=== PATIENT | female | born 2000 | race Caucasian/White ===

== ENCOUNTER 2020-03-31 01:27 | Emergency (ER) | payer BC ==
[2020-03-31] MEDS ORDERED: Sodium Chloride 0.9% 2.5 ML Syringe FLUSH PRN (01:37)
[2020-03-31] MEDS ORDERED: Sodium Chloride 0.9% 10 ML Syringe FLUSH PRN (01:37)
--- NOTE | 2020-03-31 01:39 | EDM.PDOC ---
ED HPI GENERAL MEDICAL PROBLEM - General Stated Complaint: STROKE SYMPTOMS Time Seen by Provider: 03/31/20 01:40 - History of Present Illness INITIAL COMMENTS - FREE TEXT/NARRATIVE: History of present illness: [] This patient who stopped taking her Clomid 3 weeks ago has otherwise had no recent change in her medication status she takes metformin for polycystic ovaries. The patient felt dizzy when she woke up in the morning of 03/30/2020 and felt a little off and somewhat dizzy all day. When she laid down in the afternoon she felt more dizzy. She also felt a lot more dizzy when she tried to lay down to go to bed a couple of hours ago. The dizziness is associated with true rotational vertigo. Move her head because that makes it worse. Lying down also makes it worse. It is associated with nausea and diaphoresis. There is no dyspnea. The patient is a non-smoker who is not diabetic and does not get treated for blood pressure or cholesterol. She is to take thyroid replacement for Loly's thyroiditis but she does not take it because she is not good about taking medicines according to her. The patient does feel like there is some numbness in the right side of her face. Her said she had slurred speech. Additional history from the spouse is that when she laid down tonight and felt extremely dizzy she was quite anxious and worried. She was she was calling out and telling him that something is wrong. She seemed to have breaks during her sentence completion. There were gaps but the words were the correct words that she intended. Review of systems: As per history of present illness and below otherwise all systems reviewed and negative. Past medical history: As per history of present illness and as reviewed below otherwise noncontributory. Surgical history: As per history of present illness and as reviewed below otherwise noncontributory. Social history: No reported history of drug or alcohol abuse. Family history: As per history of present illness and as reviewed below otherwise noncontributory. Physical exam: Constitutional - well developed, well-nourished and in no acute distress HEENT - normocephalic, no evidence of trauma - external nose and mouth normal - no mass in neck and no JVD - mucosae moist EYES - full EOM, PERRL, no icterus - no evidence of inflammation, injection, or drainage Respiratory - no respiratory distress, equal bilateral expansion, lungs clear to auscultation and no abnormal lung sounds Cardiovascular - Regular Rhythm with S1 and S2 appreciated and no murmur, gallop or rub. GI - abdomen soft without distension or organomegaly - normal bowel sounds - no guard or rebound Musculoskeletal no gross deformity of long bones or joints - no tenderness, swelling or edema Neurologic -FAST exam is negative. Alert and oriented times four - CN II-XII grossly intact - motor sensory and coordination symmetrically normal. Patient has dizziness when her head is moved from side to side and there is some slow horizontal nystagmus. Psychiatric - appropriate mood and affect with normal thought content Hematologic - No petechiae or purpura - mucosa appropriate color and sclera not pale - normal nail bed color and refill Integument - no rash or evidence of trauma - normal turgor Diagnostics: [] Therapeutics: [] Impression: [] Plan: [] Definitive disposition and diagnosis as appropriate pending reevaluation and review of above. - Related Data Allergies Allergy/AdvReac Type Severity Reaction Status Date / Time sumatriptan [From Imitrex] Allergy Other Verified 03/31/20 01:38 Home Meds: Home Meds ClomiPHENE [ClomiPHENE Citrate] 1 tab PO ASDIRECTED 03/31/20 [History] Meclizine HCl 25 mg PO TID PRN #20 tablet 03/31/20 [Rx] metFORMIN [Glucophage XR] 500 mg PO BID 03/31/20 [History] ED ROS GENERAL - Review of Systems Review Of Systems: Comprehensive ROS is negative, except as noted in HPI. ED EXAM, GENERAL - Physical Exam Exam: See Below Free Text/Narrative:: My physical exam is under the HPI EKG INTERPRETATION EKG Date: 03/31/20 Rhythm: NSR Rate (Beats/Min): 95 [place]: Other (Borderline right axis deviation) P-Wave: Present QRS: Normal ST-T: Normal Comparison: NA - No Prior EKG EKG Interpretation Comments: EKG does not demonstrate any acute ischemia or injury Course - Vital Signs Text/Narrative:: Station and gait were normal and after the meclizine and rest in the department she felt better. Visual tello by confrontation were normal. Full extraocular motion was normal with no diplopia. The patient read small print at 14 inches with her right eye where she said she did have kind of a feeling that her face was not completely normal and sensation. This raises the possibility that she may be developing a Gonzalez's palsy but if so she does not have any appearance of that at this point. The patient agreed to take an aspirin daily until she could see neurology. She will be prescribed meclizine for symptoms. Last Recorded V/S: Last Vital Signs Temp 96.9 F 03/31/20 01:34 Pulse 84 03/31/20 02:29 Resp 14 03/31/20 02:29 BP 157/88 H 03/31/20 02:29 Pulse Ox 97 03/31/20 02:29 - Orders/Labs/Meds Orders: Active Orders 24 hr Category Date Time Status Cardiac Monitoring [RC] . DIRECTED Care 03/31/20 01:37 Active EKG Documentation Completion [] AM Care 03/31/20 01:37 Active Sodium Chloride 0.9% [Saline Flush] Med 03/31/20 01:37 Active 10 ml FLUSH ASDIRECTED PRN Sodium Chloride 0.9% [Saline Flush] Med 03/31/20 01:37 Active 2.5 ml FLUSH ASDIRECTED PRN Saline Lock Insert [OM.PC] Stat Oth 03/31/20 01:37 Ordered Medication Orders Sodium Chloride (Saline Flush) 10 ml FLUSH ASDIRECTED PRN PRN Reason: Keep Vein Open Sodium Chloride (Saline Flush) 2.5 ml FLUSH ASDIRECTED PRN PRN Reason: Keep Vein Open Labs: Laboratory Tests 03/31/20 03/31/20 03/31/20 Range/Units 01:42 01:42 01:42 WBC 15.80 H (4.0-11.0) K/uL RBC 4.95 (4.30-5.90) M/uL Hgb 13.0 (12.0-16.0) g/dL Hct 41.0 (36.0-46.0) % MCV 82.8 (80.0-98.0) fL MCH 26.3 L (27.0-32.0) pg MCHC 31.7 (31.0-37.0) g/dL RDW Std Deviation 42.6 (28.0-62.0) fl RDW Coeff of Jef 14 (11.0-15.0) % Plt Count 448 H (150-400) K/uL MPV 8.90 (7.40-12.00) fL Neut % (Auto) 55.8 (48.0-80.0) % Lymph % (Auto) 35.3 (16.0-40.0) % [place] % (Auto) 6.5 (0.0-15.0) % Eos % (Auto) 2.2 (0.0-7.0) % Baso % (Auto) 0.2 (0.0-1.5) % Neut # (Auto) 8.8 H (1.4-5.7) K/uL Lymph # (Auto) 5.6 H (0.6-2.4) K/uL [place] # (Auto) 1.0 H (0.0-0.8) K/uL Eos # (Auto) 0.4 (0.0-0.7) K/uL Baso # (Auto) 0.0 (0.0-0.1) K/uL Nucleated RBC % 0.0 /100WBC Nucleated RBCs # 0 K/uL Sodium 138 (136-145) mmol/L Potassium 3.4 L (3.5-5.1) mmol/L Chloride 102 (98-107) mmol/L Carbon Dioxide 24.8 (21.0-32.0) mmol/L BUN 11 (7.0-18.0) mg/dL Creatinine 0.8 (0.6-1.0) mg/dL Est Cr Clr Drug Dosing TNP Estimated GFR (MDRD) > 60.0 ml/min Glucose 92 (74-106) mg/dL POC Glucose (60-110) mg/dL Calcium 8.7 (8.5-10.1) mg/dL Total Bilirubin 0.3 (0.2-1.0) mg/dL AST 18 (15-37) IU/L ALT 25 (14-63) IU/L Alkaline Phosphatase 94 (46-116) U/L Troponin I < 0.050 (0.000-0.056) ng/mL Total Protein 8.9 H (6.4-8.2) g/dL Albumin 4.1 (3.4-5.0) g/dL Globulin 4.8 H (2.6-4.0) g/dL Albumin/Globulin Ratio 0.9 (0.9-1.6) Free T4 (0.76-1.46) ng/dL TSH 3rd Generation 10.57 H (0.36-3.74) uIU/mL HCG, Qual NEGATIVE (NEG) Urine Color Urine Appearance Urine pH (5.0-8.0) Ur Specific Max (1.001-1.035) Urine Protein (NEGATIVE) mg/dL Urine Glucose (UA) (NEGATIVE) mg/dL Urine Ketones (NEGATIVE) mg/dL Urine Occult Blood (NEGATIVE) Urine Nitrite (NEGATIVE) Urine Bilirubin (NEGATIVE) Urine Urobilinogen (<2.0) EU/dL Ur Leukocyte Esterase (NEGATIVE) Urine RBC (0-2/HPF) Urine WBC (0-5/HPF) Ur Epithelial Cells (NONE-FEW) Urine Bacteria (NEGATIVE) Urine Mucus (NONE-MOD) 03/31/20 03/31/20 03/31/20 Range/Units 01:42 01:42 02:14 WBC (4.0-11.0) K/uL RBC (4.30-5.90) M/uL Hgb (12.0-16.0) g/dL Hct (36.0-46.0) % MCV (80.0-98.0) fL MCH (27.0-32.0) pg MCHC (31.0-37.0) g/dL RDW Std Deviation (28.0-62.0) fl RDW Coeff of Jef (11.0-15.0) % Plt Count (150-400) K/uL MPV (7.40-12.00) fL Neut % (Auto) (48.0-80.0) % Lymph % (Auto) (16.0-40.0) % [place] % (Auto) (0.0-15.0) % Eos % (Auto) (0.0-7.0) % Baso % (Auto) (0.0-1.5) % Neut # (Auto) (1.4-5.7) K/uL Lymph # (Auto) (0.6-2.4) K/uL [place] # (Auto) (0.0-0.8) K/uL Eos # (Auto) (0.0-0.7) K/uL Baso # (Auto) (0.0-0.1) K/uL Nucleated RBC % /100WBC Nucleated RBCs # K/uL Sodium (136-145) mmol/L Potassium (3.5-5.1) mmol/L Chloride (98-107) mmol/L Carbon Dioxide (21.0-32.0) mmol/L BUN (7.0-18.0) mg/dL Creatinine (0.6-1.0) mg/dL Est Cr Clr Drug Dosing Estimated GFR (MDRD) ml/min Glucose (74-106) mg/dL POC Glucose 91 (60-110) mg/dL Calcium (8.5-10.1) mg/dL Total Bilirubin (0.2-1.0) mg/dL AST (15-37) IU/L ALT (14-63) IU/L Alkaline Phosphatase (46-116) U/L Troponin I (0.000-0.056) ng/mL Total Protein (6.4-8.2) g/dL Albumin (3.4-5.0) g/dL Globulin (2.6-4.0) g/dL Albumin/Globulin Ratio (0.9-1.6) Free T4 0.99 (0.76-1.46) ng/dL TSH 3rd Generation (0.36-3.74) uIU/mL HCG, Qual (NEG) Urine Color YELLOW Urine Appearance HAZY Urine pH 6.0 (5.0-8.0) Ur Specific Max 1.010 (1.001-1.035) Urine Protein NEGATIVE (NEGATIVE) mg/dL Urine Glucose (UA) NEGATIVE (NEGATIVE) mg/dL Urine Ketones NEGATIVE (NEGATIVE) mg/dL Urine Occult Blood SMALL H (NEGATIVE) Urine Nitrite NEGATIVE (NEGATIVE) Urine Bilirubin NEGATIVE (NEGATIVE) Urine Urobilinogen 0.2 (<2.0) EU/dL Ur Leukocyte Esterase NEGATIVE (NEGATIVE) Urine RBC 0-2 (0-2/HPF) Urine WBC 0-2 (0-5/HPF) Ur Epithelial Cells FEW (NONE-FEW) Urine Bacteria FEW (NEGATIVE) Urine Mucus LIGHT (NONE-MOD) Meds: Medications Generic Name Dose Route Start Last Admin Trade Name Freq PRN Reason Stop Dose Admin Sodium Chloride 10 ml 03/31/20 01:37 Saline Flush FLUSH ASDIRECTED PRN Keep Vein Open Sodium Chloride 2.5 ml 03/31/20 01:37 Saline Flush FLUSH ASDIRECTED PRN Keep Vein Open Discontinued Medications Generic Name Dose Route Start Last Admin Trade Name Freq PRN Reason Stop Dose Admin Meclizine HCl 25 mg 03/31/20 02:21 03/31/20 02:28 Antivert PO 03/31/20 02:22 25 mg ONETIME ONE Administration Departure - Departure Time of Disposition: 03:00 Disposition: Home, Self-Care 01 Condition: Good Clinical Impression: Labyrinthitis - Discharge Information Prescriptions: Meclizine HCl 25 mg PO TID PRN #20 tablet PRN Reason: Dizziness Instructions: Labyrinthitis, [id number] Referrals: PCP,None [Primary Care Provider] - Additional Instructions: Take an aspirin daily along with the medicines for the symptom of dizziness. Make an appointment to see neurology. The following information is given to patients seen in the emergency department who are being discharged to home. This information is to outline your options for follow-up care. We provide all patients seen in our emergency department with a follow-up referral. The need for follow-up, as well as the timing and circumstances, are variable depending upon the specifics of your emergency department visit. If you don't have a primary care physician on staff, we will provide you with a referral. We always advise you to contact your personal physician following an emergency department visit to inform them of the circumstance of the visit and for follow-up with them and/or the need for any referrals to a consulting specialist. The emergency department will also refer you to a specialist when appropriate. This referral assures that you have the opportunity for follow-up care with a specialist. All of these measure are taken in an effort to provide you with optimal care, which includes your follow-up. Under all circumstances we always encourage you to contact your private physician who remains a resource for coordinating your care. When calling for follow-up care, please make the office aware that this follow-up is from your recent emergency room visit. If for any reason you are refused follow-up, please contact the [facility] Department at and asked to speak to the emergency department charge nurse. [facility] - Neurology Professional [address], [address] [place] [address] [facility] [address] [place] [address] [facility] [address] [place] [address] Sepsis Event Note (ED) - Focused Exam Vital Signs: Vital Signs Temp Pulse Resp BP Pulse Ox 03/31/20 02:29 84 14 157/88 H 97 03/31/20 02:00 88 18 131/81 99 03/31/20 01:34 96.9 F 104 H 18 150/87 H 98 - My Orders Last 24 Hours: My Active Orders 03/31/20 01:37 Cardiac Monitoring [RC] . DIRECTED EKG Documentation Completion [RC] AM Sodium Chloride 0.9% [Saline Flush] 10 ml FLUSH ASDIRECTED PRN Sodium Chloride 0.9% [Saline Flush] 2.5 ml FLUSH ASDIRECTED PRN Saline Lock Insert [OM.PC] Stat - Assessment/Plan Last 24 Hours: My Active Orders 03/31/20 01:37 Cardiac Monitoring [RC] . DIRECTED EKG Documentation Completion [RC] AM Sodium Chloride 0.9% [Saline Flush] 10 ml FLUSH ASDIRECTED PRN Sodium Chloride 0.9% [Saline Flush] 2.5 ml FLUSH ASDIRECTED PRN Saline Lock Insert [OM.PC] Stat
--- NOTE | 2020-03-31 02:15 | CT ---
INDICATION: Dizziness TECHNIQUE: CT head without contrast. COMPARISON: None available FINDINGS: The ventricles and sulci are within normal limits. There is no mass effect or midline shift. There is no loss of de la cruz-white differentiation. There is no evidence of a gross acute intracranial hemorrhage. No acute calvarial fracture is seen. The visualized paranasal sinuses and mastoid air cells are clear. The visualized orbits are within normal limits. The adenoids are enlarged. IMPRESSION: No evidence of a gross acute intracranial hemorrhage, mass effect or loss of de la cruz-white differentiation. Dictated by Serafin Walker MD @ 03/31/2020 2:13:29 AM Please note that all CT scans at this facility use dose modulation, iterative reconstruction, and/or weight-based dosing when appropriate to reduce radiation dose to as low as reasonably achievable. Dictated by: Serafin Walker MD @ 03/31/2020 02:13:33 (Electronically Signed)
[2020-03-31] MEDS ORDERED: Meclizine 25 MG Tab PO ONE (02:21)
[2020-03-31 02:22] LABS: BLOOD UREA NITROGEN,BUN 11 mg/dL (7.0-18.0); CARBON DIOXIDE,CO2 24.8 mmol/L (21.0-32.0); CHLORIDE,CL 102 mmol/L (98-107); GLUCOSE RANDOM 92 mg/dL (74-106); POTASSIUM,K 3.4 mmol/L (3.5-5.1); SODIUM,NA 138 mmol/L (136-145)
== END 2020-03-31 03:02 | disposition home or self-care (01) ==
LOC: MW.ED 01:27
DX: H83.09 Labyrinthitis, unspecified ear (principal); Z88.8 Allergy status to other drugs, medicaments and biological substances; Z79.84 Long term (current) use of oral hypoglycemic drugs
CPT/HCPCS: 36415; 70450; 80053; 81001; 82962; 84439; 84443; 84484; 84703; 85025; 93005; 99284; A9270; 99283